=== PATIENT | male | born 1965 | race African-American/Black ===

== ENCOUNTER 2017-01-24 16:32 | Emergency (ER) | payer BC, MEDICAID ==
[~2017-01-24] VITALS: Ht 180.3 cm; Wt 82.0 kg
[2017-01-24 19:25] VITALS: BP 119/84
[2017-01-24] MEDS ORDERED: BACITRACIN ZINC OINT UDPKT TOP ONE (20:15)
[2017-01-24] MEDS ORDERED: TETANUS, DIPHTHERIA, PERTUSSIS VAC/PF 0.5ML (>7YR OLD) IM ONE (20:15)
== END 2017-01-24 22:30 | disposition home or self-care (01) ==
LOC: ER 16:32
DX: S61.432A Puncture wound without foreign body of left hand, initial encounter (principal); F12.10 Cannabis abuse, uncomplicated; W26.8XXA Contact with other sharp object(s), not elsewhere classified, initial encounter; Y93.89 Activity, other specified; Y99.8 Other external cause status; Y92.89 Other specified places as the place of occurrence of the external cause
CPT/HCPCS: 73130; 90471; 90715; 99284; X7700; Z7610

== ENCOUNTER 2018-03-27 05:30 | Emergency (ER) | payer BC, MEDICAID ==
[~2018-03-27] VITALS: Ht 180.3 cm; Wt 84.0 kg
[2018-03-27] MEDS ORDERED: TRAMADOL 50MG TABLET PO ONE (07:00)
[2018-03-27] MEDS ORDERED: KETOROLAC 60MG/2ML VIAL IM ONE (07:00)
[2018-03-27 07:59] VITALS: BP 126/73
== END 2018-03-27 07:59 | disposition home or self-care (01) ==
LOC: ER 05:30
DX: S16.1XXA Strain of muscle, fascia and tendon at neck level, initial encounter (principal); F12.10 Cannabis abuse, uncomplicated; R51 Headache; X58.XXXA Exposure to other specified factors, initial encounter; Y93.89 Activity, other specified; Y92.89 Other specified places as the place of occurrence of the external cause; Y99.8 Other external cause status
CPT/HCPCS: 96372; 99283; J1885

== ENCOUNTER 2018-08-27 06:54 | Emergency (ER) | payer BC, OTHER ==
[~2018-08-27] VITALS: Ht 180.3 cm; Wt 84.0 kg
[2018-08-27] MEDS ORDERED: METHOCARBAMOL 500MG TABLET PO ONE (09:15)
[2018-08-27] MEDS ORDERED: KETOROLAC 30MG/ML VIAL IM ONE (09:15)
[2018-08-27 10:40] VITALS: BP 129/82
== END 2018-08-27 10:42 | disposition home or self-care (01) ==
LOC: ER 06:54
DX: M54.2 Cervicalgia (principal); M25.512 Pain in left shoulder; M19.012 Primary osteoarthritis, left shoulder
CPT/HCPCS: 72125; 73030; 96372; 99284; J1885

== ENCOUNTER 2021-09-10 02:28 | Emergency (ER) | payer OTHER ==
[~2021-09-10] VITALS: Ht 180.3 cm; Wt 84.0 kg
[2021-09-10] MEDS ORDERED: KETOROLAC 60MG/2ML VIAL IM STA (02:55)
[2021-09-10] MEDS ORDERED: FLUORESCEIN SODIUM 1MG/STRIP LEFTEYE ONE (03:00)
[2021-09-10] MEDS ORDERED: BALANCED SALT IRRIG SOLN 15ML IR ONE (03:00)
[2021-09-10] MEDS ORDERED: TETRACAINE 0.5% OPHTH DROPS 4ML LEFTEYE ONE (03:00)
[2021-09-10] MEDS ORDERED: IBUP-2029 PO (05:59)
[2021-09-10] MEDS ORDERED: AMOX-424 PO (05:59)
[2021-09-10] MEDS ORDERED: HYDR-4001 PO (05:59)
[2021-09-10 06:17] VITALS: BP 134/73
== END 2021-09-10 06:18 | disposition home or self-care (01) ==
LOC: ER 02:28
DX: S02.85XA Fracture of orbit, unspecified, initial encounter for closed fracture (principal); H11.32 Conjunctival hemorrhage, left eye; V49.49XA Driver injured in collision with other motor vehicles in traffic accident, initial encounter; Y93.89 Activity, other specified; Y92.89 Other specified places as the place of occurrence of the external cause; Y99.8 Other external cause status; F12.10 Cannabis abuse, uncomplicated
CPT/HCPCS: 70450; 70486; 71045; 96372; 99284; J1885

== ENCOUNTER 2022-11-04 20:07 | Emergency (ER) | payer OTHER ==
[~2022-11-04] VITALS: Ht 180.3 cm; Wt 84.0 kg
[~2022-11-04 20:07] MED LIST: AMOX-424 PO; HYDR-4001 PO; IBUP-2029 PO
[2022-11-04] MEDS ORDERED: IBUPROFEN 600MG TABLET PO STA (20:09)
[2022-11-04 20:42] VITALS: BP 116/80
[2022-11-04] MEDS ORDERED: CYCL10TA21 MT (21:51)
[2022-11-04] MEDS ORDERED: IBUP-2029 MT (21:51)
== END 2022-11-04 22:20 | disposition home or self-care (01) ==
LOC: ER 20:07
DX: S40.012A Contusion of left shoulder, initial encounter (principal); S40.011A Contusion of right shoulder, initial encounter; S20.221A Contusion of right back wall of thorax, initial encounter; F12.90 Cannabis use, unspecified, uncomplicated; V49.9XXA Car occupant (driver) (passenger) injured in unspecified traffic accident, initial encounter; Y93.89 Activity, other specified; Y92.89 Other specified places as the place of occurrence of the external cause; Y99.8 Other external cause status
CPT/HCPCS: 71045; 99283

== ENCOUNTER 2025-04-19 09:27 | Emergency (ER) | payer SELFPAY ==
[~2025-04-19] VITALS: Ht 180.3 cm; Wt 84.0 kg
[~2025-04-19 09:27] MED LIST changes: +CYCL10TA21 MT; +IBUP-1455 MT; +IBUP-1455 PO; -IBUP-2029 PO
[2025-04-19 09:32] VITALS: BP 139/99; PULSE 91; RESP 20; TEMP 37.2; O2SAT 100; O2SAT 99
[2025-04-19] MEDS ORDERED: AMOX1TAB16 MT (11:30)
== END 2025-04-19 12:10 | disposition home or self-care (01) ==
LOC: ER 09:27
DX: R51.9 Headache, unspecified (principal); J45.909 Unspecified asthma, uncomplicated
CPT/HCPCS: 99283

== ENCOUNTER 2025-04-23 12:10 | Emergency (ER) | payer SELFPAY ==
[~2025-04-23] VITALS: Ht 180.3 cm; Wt 85.0 kg
[~2025-04-23 12:10] MED LIST changes: +AMOX1TAB16 MT
[2025-04-23 12:24] VITALS: O2SAT 100
[2025-04-23 13:17] LABS: BASOPHILS % 0.8 % (0.0-2.0); EOSINOPHILS % 2.1 % (0.0-5.0); HEMATOCRIT. 41.5 % (42.0-52.0); HEMOGLOBIN. 13.0 g/dL (14.0-18.0); LYMPHOCYTES % 42.8 % (20.0-50.0); MEAN PLATELET VOLUME 6.7 fl (7.4-10.4); MONOCYTES % 6.3 % (2.0-8.0); NEUTROPHILS % 48.0 % (40.0-76.0); PLATELET 306 x1000/uL (130-400); RED BLOOD CELL COUNT 4.88 mill/uL (4.7-6.1); RED CELL DISTRIBUTION WIDTH 17.5 % (11.6-14.6)
[2025-04-23 13:36] LABS: INR 1.0; UREA NITROGEN BLOOD 11 mg/dL (9-23)
[2025-04-23 13:37] LABS: CREATININE 1.0 mg/dL (0.6-1.3); TROPONIN I HIGH SENSITIVITY < 4 ng/L (3.0-53)
[2025-04-23 13:38] LABS: ASPARTATE AMINOTRANSFERASE 28 IU/L (<34)
[2025-04-23 13:39] LABS: BILIRUBIN DIRECT 0.1 mg/dL (<=3.0); BILIRUBIN TOTAL 0.5 mg/dL (0.1-1.0); PROTEIN TOTAL 7.0 g/dL (6.0-8.3)
[2025-04-23 14:43] LABS: ERYTHROCYTE SEDIMENTATION RATE 5 mm/hr (0-20)
[2025-04-23] MEDS ORDERED: GABA-529 MT (14:53)
[2025-04-23] MEDS ORDERED: DEX6 MT (14:53)
[2025-04-23 15:32] VITALS: BP 162/95; PULSE 66; RESP 18; TEMP 37.1; O2SAT 100
== END 2025-04-23 15:33 | disposition home or self-care (01) ==
LOC: ER 12:10
DX: R51.9 Headache, unspecified (principal); I10 Essential (primary) hypertension; J45.909 Unspecified asthma, uncomplicated; R06.02 Shortness of breath; F10.90 Alcohol use, unspecified, uncomplicated; F12.90 Cannabis use, unspecified, uncomplicated; Z79.899 Other long term (current) drug therapy; Y90.9 Presence of alcohol in blood, level not specified
CPT/HCPCS: 36415; 70486; 80048; 80076; 82550; 83735; 84484; 85025; 85651; 99284